=== PATIENT | female | born 1940 ===

== ENCOUNTER 2016-07-16 22:53 | Observation (INO) | payer SELFPAY ==
--- NOTE | 2016-07-16 23:15 | PDOC ---
History of Present Illness - General Stated Complaint: HIGH BLOOD PRESSURE Time Seen by Provider: 07/16/16 22:59 - History of Present Illness Initial Comments: This 76-year-old woman with a history of hypertension and TIA (within the last year) visiting from [place], presents with her daughter having a few hour history of progressive vertigo and nausea. Patient describes vertigo as being more severe with movement of her head or her body being upright. She also is complaining of head discomfort, generalized weakness and chest tightness. She denies chest pain, abdominal pain, extremity pain or swelling. No recent febrile illness reported. Patient speaks only [place] with daughter as plastic surgery assistant Although the patient was weak enough to be helped in by family members, daughter does not recall that patient had any focal extremity weakness. There was no slurring of speech, difficulty swallowing or facial weakness. Patient was started on Eliquis after TIA(transient expressive dysphasia) last year.Daughter unaware of extent of neuro workup(pt was in [place]) She has long history of hypertension; no history of DM or hyperlipidemia; no known family history of cardiac disease and no history of smoking PMH As above, also hx of left-sided breast lumpectomy(with chemo/RT) 5 years ago hx of hyperthyriodism Past History - Past Medical History Allergies/Adverse Reactions: Allergies Allergy/AdvReac Type Severity Reaction Status Date / Time No Known Allergies Allergy Unverified 07/16/16 23:26 Home Medications: Ambulatory Orders Apixaban [Eliquis] 5 mg PO BID 07/16/16 Ascorbate Calcium [Vitamin C] 500 mg PO DAILY 07/16/16 Magnesium 250 mg PO DAILY 07/16/16 Metoprolol Tartrate [Lopressor -] 12.5 mg PO DAILY 07/16/16 [place]-3/Dha/Epa/Fish Oil [[place] 3 500 Softgel] 1 each PO DAILY 07/16/16 Propylthiouracil 50 mg PO BID 07/16/16 Vit B Comp/C/FA/Iron/Vit E [Vitamin B Complex Tablet] 1 each PO DAILY 07/16/16 Review of Systems - Review of Systems Able to Perform ROS?: Yes Comments:: 12 point review of systems is negative except for what is noted in the history of present illness *Physical Exam - Physical Exam Comments: GENERAL: The patient is awake, alert, and fully oriented; speaking only [place]( daughter plastic surgery assistant) HEAD: Normal with no signs of trauma. EYES: Pupils 3mm equal, round and reactive to light, extraocular movements intact, sclera anicteric, conjunctiva clear with no pallor. ENT: moist mucous membranes. Ears normal, nares patent, oropharynx clear without exudates. NECK: Normal range of motion, supple without lymphadenopathy, JVD, or masses. LUNGS: Breath sounds equal, clear to auscultation bilaterally. No wheeze/ crackles HEART: Regular rate and rhythm, normal S1 and S2 ; 3/6 systolic murmur across precordium extending into carotids. ABDOMEN: Soft/nontender/nondistended. BS wnl. No guarding or rebound. No palpable masses. No hepatosplenomegaly. EXTREMITIES: Normal range of motion, no edema. No clubbing or cyanosis. No cords, erythema, or tenderness. NEUROLOGICAL: Cranial nerves II through XII grossly intact. No abnormal nystagmus noted. Normal speech, moving all 4 extremities equally. Gait not tested SKIN: Warm, Dry, normal turgor, no rashes or lesions noted. 12 lead EKG performed: NSR at 71/min, axis/intervals/waveforms are normal. No acute st or t wave abnormalities ED Treatment Course - LABORATORY CBC & Chemistry Diagram: 07/16/16 23:20 07/16/16 23:20 Medical Decision Making - Medical Decision Making Non contrast head CT shows no evidence of bleed, mass or acute infarct Lab evaluation is essentially without significant abnormalities: CBC is normal. INR is 1.27. Other than mild pre-renal azotemia, chemistry profile is normal. Cardiac enzymes are not elevated 07/17/16 01:07 Patient feels more comfortable after 4mg Zofran IV with relief of nausea. She also denies any chest pain/tightness. Meclizine 25mg PO given 07/17/16 02:14 patient felt less vertigo while lying in bed but has significant vertigo with marked ataxic gait while walking(needed assistance of 2 people). Family considering having patient signout AMA since she is visiting country and without insurance. Risks of symptoms being of [facility] etiology, in light of patient's previous cerebrovascular event and hx of HTN, explained to family.This, along with pt's fall risk if she is discharged, warrrants admission for further workup of persistent vertigo in elderly patient with cerebrovascular disease 07/17/16 02:37 Patient and family agree to admission [facility] hospitalist service contacted 07/17/16 03:[address] Kilgore of Hospitalist service; admission to observation arranged 07/17/16 03:27 Daughter states that patient continues to have headache, mainly posteriorly. Pt refused acetaminophen, stating that she would rather sleep *DC/Admit/Observation/Transfer Diagnosis at time of Disposition: Vertigo - Discharge Dispostion Admit: Yes
[2016-07-16 23:36] LABS: BASOPHIL 0.8 % (0-2.0); EOSINOPHIL 2.2 % (0-4.5); MCH 28.4 pg (25.7-33.7); MCHC 33.5 g/dl (32.0-36.0); MEAN CELL VOLUME 84.8 fl (80-96); MEAN PLT VOLUME 9.6 fl (7.5-11.1); NEUTROPHILS 64.7 % (42.8-82.8); PLATELET COUNT 328 K/MM3 (134-434); RDW 13.5 % (11.6-15.6); WHITE BLOOD COUNT 8.7 K/mm3 (4.0-10.0)
[2016-07-16 23:38] LABS: INR 1.27 (0.82-1.09); PROTHROMBIN TIME (PATIENT) 13.8 SEC (10.2-13.0)
[2016-07-16 23:53] LABS: CPK(DFH) 84 IU/L (26-140)
[2016-07-16 23:54] LABS: ALBUMIN 3.9 g/dl (3.5-5.0); BILIRUBIN,TOTAL 0.4 mg/dl (0.2-1.0); CALCIUM 9.7 mg/dl (8.4-10.2); TOT PROT 7.1 g/dl (6.4-8.3)
[2016-07-17 00:06] LABS: TROPONIN I (DFP) < 0.03 ng/ml (0.03-0.50)
[2016-07-17] MEDS ORDERED: ONDANSETRON 4 MG/2 ML VIAL IVPB ONE (00:16)
[2016-07-17] MEDS ORDERED: ONDANSETRON 4 MG/2 ML VIAL ONE (00:22)
[2016-07-17] MEDS ORDERED: MECLIZINE HCL 25 MG TABLET (FP) PO ONE (01:06)
[2016-07-17] MEDS ORDERED: MECLIZINE HCL 25 MG TABLET (FP) ONE (01:07)
[2016-07-17] MEDS ORDERED: ONDANSETRON 4 MG/2 ML VIAL IVPB PRN (03:28)
[2016-07-17] MEDS ORDERED: MECLIZINE HCL 25 MG TABLET (FP) PO PRN (03:37)
[2016-07-17] MEDS ORDERED: SODIUM CHLORIDE 1,000 ML IV SCH (03:45)
[2016-07-17 04:44] VITALS: BP 136/68; PULSE 70; TEMP 97.5
[2016-07-17 07:22] LABS: URINE APPEARANCE Clear; URINE BILIRUBIN Negative (NEGATIVE); URINE BLOOD Trace-intact (NEGATIVE); URINE GLUCOSE (UA) Trace (NEGATIVE); URINE KETONE Negative (NEGATIVE); URINE LEUK ESTERASE Negative (NEGATIVE); URINE NITRITE Negative (NEGATIVE); URINE PROTEIN Negative (NEGATIVE); URINE UROBILINOGEN 0.2 E.U/dl (0.2-1.0)
[2016-07-17 07:23] LABS: URINE COLOR YELLOW
[2016-07-17 08:26] LABS: BASOPHIL 0.6 % (0-2.0); EOSINOPHIL 1.4 % (0-4.5); MCH 29.8 pg (25.7-33.7); MCHC 33.7 g/dl (32.0-36.0); MEAN CELL VOLUME 88.4 fl (80-96); MEAN PLT VOLUME 10.1 fl (7.5-11.1); NEUTROPHILS 68.2 % (42.8-82.8); PLATELET COUNT 273 K/MM3 (134-434); RDW 14.2 % (11.6-15.6); WHITE BLOOD COUNT 8.8 K/mm3 (4.0-10.0)
[2016-07-17 08:31] LABS: ANION GAP 10 (8-16); CALCIUM 9.1 mg/dL (8.5-10.1); CO2 25 mmol/L (21-32); CREATININE 0.7 mg/dL (0.55-1.02); GLUCOSE,RANDOM 105 mg/dL (74-106); PHOSPHOROUS 4.3 mg/dL (2.5-4.9)
[2016-07-17 08:39] LABS: THYROID STIMULATING HORMONE 1.23 uIU/ml (0.358-3.74)
--- NOTE | 2016-07-17 09:45 | HP ---
CHIEF COMPLAINT: Dizziness PCP: None HISTORY OF PRESENT ILLNESS: Patient and daughter refused to give information stating they would like to sign out against medical advice. HPI noted from ED note: "This 76-year-old woman with a history of hypertension and TIA (within the last year) visiting from [place], presents with her daughter having a few hour history of progressive vertigo and nausea. Patient describes vertigo as being more severe with movement of her head or her body being upright. She also is complaining of head discomfort, generalized weakness and chest tightness. She denies chest pain, abdominal pain, extremity pain or swelling. No recent febrile illness reported. 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 There was no slurring of speech, difficulty swallowing or facial weakness. Patient was started on Eliquis after TIA(transient expressive dysphasia) last year.Daughter unaware of extent of neuro workup(pt was in [place])" ER course was notable for: (1) CT head with no evidence of acute intracranial pathology (2) (3) PAST MEDICAL HISTORY: Refused PAST SURGICAL HISTORY: Refused Social History: Smoking: Refused Alcohol: Refused Drugs: Refused Family History: Refused Allergies No Known Allergies Allergy (Unverified 07/16/16 23:26) HOME MEDICATIONS: Home Medications Medication Instructions Recorded Apixaban [Eliquis] 5 mg PO BID 07/16/16 Ascorbate Calcium [Vitamin C] 500 mg PO DAILY 07/16/16 Magnesium 250 mg PO DAILY 07/16/16 Metoprolol Tartrate [Lopressor -] 12.5 mg PO DAILY 07/16/16 [place]-3/Dha/Epa/Fish Oil [[place] 3 1 each PO DAILY 07/16/16 500 Softgel] Propylthiouracil 50 mg PO BID 07/16/16 Vit B Comp/C/FA/Iron/Vit E 1 each PO DAILY 07/16/16 [Vitamin B Complex Tablet] REVIEW OF SYSTEMS Patient and daughter refused PHYSICAL EXAMINATION Vital Signs - 24 hr 07/17/16 07/17/16 07/17/16 03:18 03:29 04:41 Temperature 98.4 F 97.5 F L 97.5 F L Pulse Rate 70 70 Pulse Rate [ 76 Radial] Respiratory 18 18 18 Rate Blood Pressure 136/68 136/68 Blood Pressure 158/85 [Arm] O2 Sat by Pulse 95 94 L 94 L Oximetry (%) Physical Exam: Patient and daughter refused Laboratory Results - last 24 hr 07/17/16 07/17/16 07/17/16 06:20 06:20 06:20 WBC 8.8 RBC 4.54 Hgb 13.5 Hct 40.1 MCV 88.4 MCHC 33.7 RDW 14.2 Plt Count 273 MPV 10.1 Neutrophils % 68.2 Lymphocytes % 23.7 Monocytes % 6.1 Eosinophils % 1.4 Basophils % 0.6 Sodium 142 Potassium 4.1 Chloride 107 Carbon Dioxide 25 Anion Gap 10 BUN 19 H Creatinine 0.7 Random Glucose 105 Calcium 9.1 Phosphorus 4.3 Magnesium 2.0 Creatine Kinase Cancelled Troponin I Cancelled TSH 1.23 07/17/16 06:20 WBC RBC Hgb Hct MCV MCHC RDW Plt Count MPV Neutrophils % Lymphocytes % Monocytes % Eosinophils % Basophils % Sodium Potassium Chloride Carbon Dioxide Anion Gap BUN Creatinine Random Glucose Calcium Phosphorus Magnesium Creatine Kinase Cancelled Troponin I Cancelled TSH Visit type - Emergency Visit Emergency Visit: Yes ED Registration Date: 07/17/16 Care time: The patient presented to the Emergency Department on the above date and was hospitalized for further evaluation of their emergent condition. - New Patient This patient is new to me today: Yes Date on this admission: 07/17/16 - Critical Care Critical Care patient: No
--- NOTE | 2016-07-17 09:45 | DS ---
Physical Examination Vital Signs: Vital Signs Temperature 97.5 F L 07/17/16 04:41 Pulse Rate 70 07/17/16 04:41 Respiratory Rate 18 07/17/16 04:41 Blood Pressure 136/68 07/17/16 04:41 O2 Sat by Pulse Oximetry (%) 94 L 07/17/16 04:41 Labs: CBC, BMP 07/17/16 06:20 07/17/16 06:20 Discharge Summary Reason For Visit: HIGH BLOOD PRESSURE Current Active Problems Vertigo (Acute) Hospital Course: The patient and daughter has requested to sign out against medical advice. The patient displays capacity to make her own decisions. Discussed the workup being refused including further evaluation for vertigo and neurology evaluation. The patient and daughter understand the risks of leaving against medical advice, including worsening symptoms and . The patient has decided to leave against medical advice. - Home Medications Comprehensive Discharge Medication List: Ambulatory Orders Apixaban [Eliquis] 5 mg PO BID 07/16/16 Ascorbate Calcium [Vitamin C] 500 mg PO DAILY 07/16/16 Magnesium 250 mg PO DAILY 07/16/16 Metoprolol Tartrate [Lopressor -] 12.5 mg PO DAILY 07/16/16 [place]-3/Dha/Epa/Fish Oil [[place] 3 500 Softgel] 1 each PO DAILY 07/16/16 Propylthiouracil 50 mg PO BID 07/16/16 Vit B Comp/C/FA/Iron/Vit E [Vitamin B Complex Tablet] 1 each PO DAILY 07/16/16 This patient is new to me today: Yes Date on this admission: 07/17/16 Emergency Visit: Yes ED Registration Date: 07/17/16 Care time: The patient presented to the Emergency Department on the above date and was hospitalized for further evaluation of their emergent condition. Critical Care patient: No - Discharge Referral Referred to [facility] No
[2016-07-17] MEDS ORDERED: APIXABAN 5 MG TABLET PO SCH (10:00)
[2016-07-17] MEDS ORDERED: VITAMIN B COMP W-C 1 EA TABLET PO SCH (10:00)
[2016-07-17] MEDS ORDERED: METOPROLOL TARTRATE 25 MG TABLET (FP) PO SCH (10:00)
[2016-07-17] MEDS ORDERED: MAGNESIUM OXIDE 400 MG TABLET (FP) PO SCH (10:00)
[2016-07-17] MEDS ORDERED: PROPYLTHIOURACIL 50 MG TABLET (UD) PO SCH (10:00)
[2016-07-17] MEDS ORDERED: ASCORBIC ACID 500 MG TABLET (FP) PO SCH (10:00)
[2016-07-17] MEDS ORDERED: PATIENT'S OWN MEDICATION (NON-FORMULARY) (Magnesium [Magnesium] 250 MG) PO SCH (10:00)
[2016-07-17] MEDS ORDERED: PATIENT'S OWN MEDICATION (NON-FORMULARY) (Omega-3/Dha/Epa/Fish Oil [Omega 3 500 Softgel] 1 PO SCH (10:00)
[2016-07-17 10:46] LABS: TROPONIN I < 0.02 ng/ml (0.00-0.05)
--- NOTE | 2016-07-17 23:48 | EKG ---
Test Reason : Blood Pressure : / mmHG Vent. Rate : 071 BPM Atrial Rate : 071 BPM P-R Int : 178 ms QRS Dur : 074 ms QT Int : 432 ms P-R-T Axes : 040 -18 019 degrees QTc Int : 469 ms NORMAL SINUS RHYTHM MINIMAL VOLTAGE CRITERIA FOR LVH, MAY BE NORMAL VARIANT BORDERLINE ECG NO PREVIOUS ECGS AVAILABLE Confirmed by GENARO JOSÉ MD ([id number]) on 07/17/2016 11:47:51 PM Referred By: MD ACOSTA Confirmed By:GENARO JOSÉ MD
== END 2016-07-17 09:45 | disposition left against medical advice (07) ==
LOC: FER 22:53 → FM/S 07-17 02:59
PROVIDERS: ADMIT Internal Medicine; ATTEND Registered Nurse
DX: I10 Essential (primary) hypertension (principal); G45.8 Other transient cerebral ischemic attacks and related syndromes; E05.80 Other thyrotoxicosis without thyrotoxic crisis or storm; R42 Dizziness and giddiness
CPT/HCPCS: 36415; 70450-TC; 80048; 80053; 81003; 82550; 83605; 83735; 84100; 84443; 84484; 85025; 85610; 93005; 99283-25; G0378